=== PATIENT | male | born 1965 | race Caucasian/White ===

== ENCOUNTER 2022-01-01 11:43 | Day surgery (SDC) | payer OTHER, SELFPAY ==
[2021-12-26 10:04] VITALS: BMI 24.4
--- NOTE | 2021-12-29 08:52 | HO.ANESPROP2 ---
Documented by User: Rosalinda Landry NP 12/29/21 08:52 HPI - Anesthesia Eval Consult details Narrative: 56yo M for Colonoscopy [facility] Surgical History Surgical History History of back surgery History of vasectomy Hx of circumcision Hx of colonoscopy Social History Social History Patient Tobacco Use Status: Never used Tobacco Are you DNR?: No Advance Directives: No Advance Directives Information Provided: Yes Recently lost weight without trying: No Nutrition Risks: No Nutritional Risk Meds Allergies Allergy/AdvReac Type Severity Reaction Status Date / Time walnut Allergy Unknown Verified 12/26/21 10:07 Home Medications Medication Instructions Recorded Confirmed Last Taken Type Probiotic 1 pill PO DAILY 12/26/21 01/01/22 Unknown History coQ10 (ubiquinol) 1 pill PO DAILY 12/26/21 01/01/22 12/29/21 History multivitamin 1 pill PO DAILY 12/26/21 01/01/22 Unknown History Exam Exam Date and Time: December 29, 2021 0852 Height,Weight and Vital Signs: Height 5 ft 8.5 in Weight 73.936 kg Assessment and Plan Assessment Anesthesia Assessment: Chart Reviewed Documented by User: Peter De Paz MD 01/01/22 13:04 [facility] Family History Family history of problems with anesthesia: No Surgical History Surgical History History of back surgery History of vasectomy Hx of circumcision Hx of colonoscopy History of Problems with Anesthesia: No Social History Social History Patient Tobacco Use Status: Never used Tobacco Are you DNR?: No Advance Directives: No Advance Directives Information Provided: Yes Recently lost weight without trying: No Nutrition Risks: No Nutritional Risk Meds Allergies Allergy/AdvReac Type Severity Reaction Status Date / Time walnut Allergy Unknown Verified 12/26/21 10:07 Home Medications Medication Instructions Recorded Confirmed Last Taken Type Probiotic 1 pill PO DAILY 12/26/21 01/01/22 Unknown History coQ10 (ubiquinol) 1 pill PO DAILY 12/26/21 01/01/22 12/29/21 History multivitamin 1 pill PO DAILY 12/26/21 01/01/22 Unknown History Exam Airway Mallampati Class: IV TM Dist: >3cm Neck ROM: Full Loose/Missing/Broken Teeth: No (Rrr) Lungs: clear Assessment and Plan Final Anesthetic Review Family History of Problems with Anesthesia: No History of Problems with Anesthesia: No NPO: Yes ASA Class: I Final Preanesthetic Review: No Changes in Pt Med Stat, Meds/Allgs Chart Reviewed, Consent Obtained/Reviewed and Anes Risks/Benef Reviewed Anesthetic Plan Anesthetic Plan: MAC: Disposition: Standard PACU
[2022-01-01 12:14] VITALS: BP 131/87; PULSE 63; RESP 19; TEMP 36.1; O2SAT 97
[2022-01-01] MEDS: Lactated Ringers 1,000 ML 100 ML IVCONT (12:40)
[2022-01-01 13:46] VITALS: BP 109/69; PULSE 54; RESP 18; TEMP 36.7; O2SAT 99
--- NOTE | 2022-01-01 13:48 | PM.OP ---
Brief Operative Note Date of Service: 01/01/22 Pre-op diagnosis: Screening Post-op diagnosis: other (Colon polyp) Procedure: Colonoscopy to the cecum and TI with bx/removal of polyp Surgeon: Bentley Vega Anesthesia: MAC Was an Sludge Mill Operator used for this Procedure?: No Estimated blood loss (mL): 2.0 Pathology: other (A. Proximal ascending colon polyp) Condition: stable Disposition: PACU
[2022-01-01 14:01] VITALS: BP 122/73; PULSE 51; RESP 16; O2SAT 97
[2022-01-01 14:16] VITALS: BP 132/82; PULSE 52; RESP 16; TEMP 36.7; O2SAT 98
--- NOTE | 2022-01-02 00:27 | OP_ITS ---
SURGEON: Bentley Vega MD INDICATIONS: The patient presents for evaluation of colorectal cancer screening and family history of colorectal cancer and polyps. Full consent has been obtained from him for this, including risks of bleeding and perforation. PREOPERATIVE DIAGNOSIS: Family history of colorectal cancer and polyps, colorectal cancer screening. POSTOPERATIVE DIAGNOSIS: PROCEDURE PERFORMED: Colonoscopy to the cecum and terminal ileum with biopsy and removal of polyp. ESTIMATED BLOOD LOSS: COMPLICATIONS: ANESTHESIA: Monitored anesthesia care. ASSISTANTS: SPECIMENS: POSTOPERATIVE DIAGNOSES: Family history of colorectal cancer and polyps, colorectal cancer screening, small colon polyp, sigmoid diverticulosis, and internal hemorrhoids. DESCRIPTION OF PROCEDURE: The patient was placed in the left lateral decubitus position the digital rectal exam revealed no abnormalities. The Olympus video pediatric colonoscope was entered into the rectum and advanced easily to the cecum. Once in the cecum, I did identify a normal-appearing cecal pouch with appendiceal orifice and a normal-appearing ileocecal valve. The terminal ileum was cannulated and appeared normal. The scope was withdrawn back in the colon. The entire cecum and ileocecal valve appeared normal. The scope was slowly withdrawn assessing all mucosal surfaces carefully. Preparation was excellent. In the proximal ascending colon was a flat approximately 3 or 4 mm polyp, which was biopsied and completely removed with a cold biopsy forceps. I did not visualize any other polyps, colitis, nor angiodysplasia. There was a mild amount of sigmoid diverticulosis. In the rectum, the scope was retroflexed visualizing internal hemorrhoids, but no other pathology. The rectal mucosa appeared normal. The scope was straightened and withdrawn from the patient. He tolerated the procedure well and was returned to the recovery area in stable condition. IMPRESSION: 1. Small colon polyp, status post biopsy and removal. 2. Diverticulosis. 3. Internal hemorrhoids. PLAN: The results of the biopsies will be checked. Even if this is not a tubular adenoma, I would recommend a followup colonoscopy in 5 years for further screening given his family history of colon cancer in both parents and colon polyps in his brother. He will see me on a p.r.n. basis otherwise. MD JOSÉ MANUEL [place]/SUSIL / [phone]
== END 2022-01-01 14:55 | disposition home or self-care (01) ==
PROVIDERS: PCP Internal Medicine; Visit Provider Internal Medicine
PROC: 0DJD8ZZ Inspection of Lower Intestinal Tract, Via Natural or Artificial Opening Endoscopic (ICD-10-PCS; CPT 45378; principal; 2022-01-01 13:00)
DX: Z12.11 Encounter for screening for malignant neoplasm of colon (principal); Z80.0 Family history of malignant neoplasm of digestive organs; Z83.71 Family history of colonic polyps; D12.2 Benign neoplasm of ascending colon; K57.30 Diverticulosis of large intestine without perforation or abscess without bleeding; K64.8 Other hemorrhoids; Z98.52 Vasectomy status; Z98.890 Other specified postprocedural states
CPT/HCPCS: 45380; 88305

== ENCOUNTER 2022-11-14 10:40 | Outpatient (REF) | payer SELFPAY ==
[2022-11-14 12:16] LABS: HBS Num1 0.17 mIU/mL (0-7.99); ~Hepatitis B Surface Antibody NONREACTIVE (Nonreactive)
[2022-11-16 17:43] LABS: TS Negative Control Passed; TS Panel A 0; TS Panel B 3; TS Positive Control Passed; TSpotTB Negative (Negative)
== END 2022-11-14 10:41 | disposition home or self-care (01) ==
LOC: HO.LNP 10:40
PROVIDERS: Visit Provider Physician Assistant Medical
DX: Z02.1 Encounter for pre-employment examination (principal)
CPT/HCPCS: 86481; 86706; 86787